=== PATIENT | female | born 1985 | race Hispanic/Latino ===

== ENCOUNTER 2019-02-20 18:02 | Emergency (ER) | payer SELFPAY ==
--- NOTE | 2019-02-20 19:18 | RAD REPORT ---
EXAM DESCRIPTION: US - Abdomen Exam Limited - 02/20/2019 7:10 pm CLINICAL HISTORY: Abdominal pain COMPARISON: No comparisons FINDINGS: Gallbladder is packed with multiple densely shadowing gallstones. No wall thickening or pe richolecystic fluid suspected. No common duct stone or biliary tree dilatation identified. IMPRESSION: Numerous gallstones back in normal sized gallbladder. No biliary tree abnormality.
[2019-02-20] MEDS ORDERED: KETOROLAC 30 MG/ML INJ ONE (19:27)
[2019-02-20] MEDS ORDERED: PROMETHAZINE 25 MG TABLET ONE (19:27)
--- NOTE | 2019-02-20 19:58 | ER ---
Nurse's Notes [facility] Name: Mary Kay Rausch Age: 34 yrs Sex: Female : 1985 Arrival Date: 02/20/2019 Time: 18:08 Bed 8 Private MD: Diagnosis: Cholelithiasis Presentation: 02/20 18:14 Presenting complaint: Patient states: n/v, epigastric pain started today 1300. Hx sv gallstones, was supposed to have sx but did not. Transition of care: patient was not received from another setting of care. Onset of symptoms was February 20, 2019. Risk Assessment: Do you want to hurt yourself or someone else? Patient reports no desire to harm self or others. Initial Sepsis Screen: Does the patient meet any 2 criteria? No. Patient's initial sepsis screen is negative. Does the patient have a suspected source of infection? No. Patient's initial sepsis screen is negative. Care prior to arrival: None. 18:14 Method Of Arrival: Ambulatory sv 18:14 Acuity: CALLI 3 sv 18:16 Note trucker hand ID #[id number]. sv Triage Assessment: 18:14 General: Appears in no apparent distress. uncomfortable, Behavior is calm, cooperative, sv appropriate for age. Pain: Complains of pain in anterior aspect of left lateral abdomen and left upper quadrant. Neuro: Level of Consciousness is awake, alert, obeys commands, Gait is steady. Respiratory: Respiratory effort is even, unlabored. GI: Reports upper abdominal pain, nausea, vomiting. Historical: - Allergies: 18:16 No Known Allergies; sv - PMHx: 18:16 Gallstones; sv - PSHx: 18:16 None; sv - Immunization history:: Adult Immunizations up to date. - Social history:: Smoking status: Patient/guardian denies using tobacco. - Ebola Screening: : No symptoms or risks identified at this time. Screenin:29 Abuse screen: Denies threats or abuse. Nutritional screening: No deficits noted. ea Tuberculosis screening: No symptoms or risk factors identified. Fall Risk None identified. Assessment: 19:27 General: Appears uncomfortable, Behavior is calm, cooperative, appropriate for age. ea Pain: Complains of pain in abdomen and left upper quadrant. Neuro: Level of Consciousness is awake, alert, obeys commands, Oriented to person, place, time, situation. Cardiovascular: Patient's skin is warm and dry. Respiratory: Airway is patent Respiratory effort is even, unlabored, Respiratory pattern is regular, symmetrical. GI: Abdomen is non-distended. Derm: Skin is pink, warm \T\ dry. Musculoskeletal: Circulation, motion, and sensation intact. 19:57 Reassessment: Patient and/or family updated on plan of care and expected duration. Pain ea level reassessed. Patient is alert, oriented x 3, equal unlabored respirations, skin warm/dry/pink. Patient states symptoms have improved. 20:10 Reassessment: Patient and/or family updated on plan of care and expected duration. Pain ea level reassessed. Patient is alert, oriented x 3, equal unlabored respirations, skin warm/dry/pink. Discharge instruction given to patient, verbalized the understanding of instruction. Pt left ED ambulatory accompanied by significant other. Pt tolerating well. Vital Signs: 18:16 BP 131 / 99; Pulse 74; Resp 16; Temp 98; Pulse Ox 99% ; Weight 52 kg; Height 5 ft. 0 sv in. (152.40 cm); 19:40 BP 118 / 76; Pulse 72; Resp 18; Pulse Ox 98% ; ea 18:16 Body Mass Index 22.39 (52.00 kg, 152.40 cm) sv ED Course: 18:08 Patient arrived in ED. am2 18:15 Triage completed. sv 18:16 Arm band placed on. sv 18:35 [facility]. snw 18:35 Bulmaro Cronin MD is Attending Physician. snw 18:49 Patient taken to ultrasound. via wheelchair. hr 18:55 Patient's name was called from ER lobby. No response. fc 19:11 Eri Palumbo, RN is Primary Nurse. ea 19:12 US Abdomen Limited In Process Unspecified. EDMS 19:29 Patient has correct armband on for positive identification. Bed in low position. Call ea light in reach. 20:17 No provider procedures requiring assistance completed. Patient did not have IV access ea during this emergency room visit. Administered Medications: 19:32 Drug: Phenergan 25 mg Route: PO; rr5 19:55 Follow up: Response: No adverse reaction ea 19:32 Drug: TORadol 30 mg Route: IM; Site: right gluteus; rr5 19:55 Follow up: Response: No adverse reaction; Pain is decreased ea Outcome: 19:58 Discharge ordered by . efrem 20:17 Discharged to home ambulatory, with significant other. ea 20:17 Condition: stable 20:17 Discharge instructions given to patient, Instructed on discharge instructions, follow up and referral plans. medication usage, Demonstrated understanding of instructions, follow-up care, medications, Prescriptions given X 2. 20:18 Patient left the ED. ea Signatures: Dispatcher [employer] EDKesha Pack, RN RN Vaishali Perez, SHEEP AND WHEAT FARMER-C SHEEP AND WHEAT FARMER-Csnw Yeny Blancas Felicia, RN RN Venita Garduno Elena RN RN Fabian Boyce RN RN rr5
--- NOTE | 2019-02-20 19:58 | EDPHYS ---
Physician Documentation [facility] Name: Mary Kay Rausch Age: 34 yrs Sex: Female : 1985 Arrival Date: 02/20/2019 Time: 18:08 Bed 8 Private MD: ED Physician Bulmaor Cronin HPI: 02/20 19:56 This 34 yrs old Female presents to ER via Ambulatory with complaints of RUQ snw pain, Nausea/Vomiting. 19:56 The patient presents with abdominal pain in the epigastric area, in the right upper snw quadrant. Onset: The symptoms/episode began/occurred suddenly. The symptoms radiate to right back. Associated signs and symptoms: Pertinent positives: nausea. The symptoms are described as intermittent, vague. Severity of pain: At its worst the pain was moderate in the emergency department the pain has improved. The patient has experienced similar episodes in the past. The patient has not recently seen a physician. known Cholelithiasis. Historical: - Allergies: 18:16 No Known Allergies; sv - PMHx: 18:16 Gallstones; sv - PSHx: 18:16 None; sv - Immunization history:: Adult Immunizations up to date. - Social history:: Smoking status: Patient/guardian denies using tobacco. - Ebola Screening: : No symptoms or risks identified at this time. ROS: 19:56 Constitutional: Negative for fever, chills, and weight loss, Eyes: Negative for injury, snw pain, redness, and discharge, ENT: Negative for injury, pain, and discharge, Neck: Negative for injury, pain, and swelling, Cardiovascular: Negative for chest pain, palpitations, and edema, Respiratory: Negative for shortness of breath, cough, wheezing, and pleuritic chest pain, Back: Negative for injury and pain, : Negative for injury, bleeding, discharge, and swelling, MS/Extremity: Negative for injury and deformity, Skin: Negative for injury, rash, and discoloration, Neuro: Negative for headache, weakness, numbness, tingling, and seizure. 19:56 Abdomen/GI: Positive for abdominal pain, nausea and vomiting. Exam: 19:55 Constitutional: This is a well developed, well nourished patient who is awake, alert, snw and in no acute distress. Head/Face: Normocephalic, atraumatic. Eyes: Pupils equal round and reactive to light, extra-ocular motions intact. Lids and lashes normal. Conjunctiva and sclera are non-icteric and not injected. Cornea within normal limits. Periorbital areas with no swelling, redness, or edema. ENT: Nares patent. No nasal discharge, no septal abnormalities noted. Tympanic membranes are normal and external auditory canals are clear. Oropharynx with no redness, swelling, or masses, exudates, or evidence of obstruction, uvula midline. Mucous membranes moist. Neck: Trachea midline, no thyromegaly or masses palpated, and no cervical lymphadenopathy. Supple, full range of motion without nuchal rigidity, or vertebral point tenderness. No Meningismus. Chest/axilla: Normal chest wall appearance and motion. Nontender with no deformity. No lesions are appreciated. Cardiovascular: Regular rate and rhythm with a normal S1 and S2. No gallops, murmurs, or rubs. Normal PMI, no JVD. No pulse deficits. Respiratory: Lungs have equal breath sounds bilaterally, clear to auscultation and percussion. No rales, rhonchi or wheezes noted. No increased work of breathing, no retractions or nasal flaring. Back: No spinal tenderness. No costovertebral tenderness. Full range of motion. Skin: Warm, dry with normal turgor. Normal color with no rashes, no lesions, and no evidence of cellulitis. MS/ Extremity: Pulses equal, no cyanosis. Neurovascular intact. Full, normal range of motion. Neuro: Awake and alert, GCS 15, oriented to person, place, time, and situation. Cranial nerves II-XII grossly intact. Motor strength 5/5 in all extremities. Sensory grossly intact. Cerebellar exam normal. Normal gait. Psych: Awake, alert, with orientation to person, place and time. Behavior, mood, and affect are within normal limits. 19:55 Abdomen/GI: Inspection: abdomen appears normal, Bowel sounds: normal, Palpation: mild abdominal tenderness, in the right upper quadrant and left upper quadrant, Indicators: Beltran's sign is negative. Vital Signs: 18:16 BP 131 / 99; Pulse 74; Resp 16; Temp 98; Pulse Ox 99% ; Weight 52 kg; Height 5 ft. 0 sv in. (152.40 cm); 19:40 BP 118 / 76; Pulse 72; Resp 18; Pulse Ox 98% ; ea 18:16 Body Mass Index 22.39 (52.00 kg, 152.40 cm) sv MDM: 19:37 Patient medically screened. snw 19:58 Data reviewed: vital signs, nurses notes. Data interpreted: Pulse oximetry: on room air snw is 98 %. Interpretation: normal. Counseling: I had a detailed discussion with the patient and/or guardian regarding: the historical points, exam findings, and any diagnostic results supporting the discharge/admit diagnosis, lab results, radiology results, the need for outpatient follow up, to return to the emergency department if symptoms worsen or persist or if there are any questions or concerns that arise at home. Special discussion: Based on the patient's Hx, exam, and Dx evaluation, there is no indication for emergent surgery or inpatient Tx. It is understood by the patient/guardian that if the Sx's persist or worsen they need to return immediately for re-evaluation. Based on the history and exam findings, there is no indication for further emergent testing or inpatient evaluation. I discussed with the patient/guardian the need to see the general surgeon for further evaluation of the symptoms. 02/20 18:36 Order name: Urine Microscopic Only; Complete Time: 20:09 snw 02/20 19:28 Order name: Urine Dipstick--Ancillary (enter results); Complete Time: 20:09 em1 02/20 18:36 Order name: US Abdomen Limited; Complete Time: 19:23 snw 02/20 19:28 Order name: Urine --Ancillary (enter results); Complete Time: 20:09 em1 02/20 18:36 Order name: Urine Test (obtain specimen); Complete Time: 19:25 snw 02/20 18:36 Order name: Urine Dipstick-Ancillary (obtain specimen); Complete Time: 19:25 snw Administered Medications: 19:32 Drug: Phenergan 25 mg Route: PO; rr5 19:55 Follow up: Response: No adverse reaction ea 19:32 Drug: TORadol 30 mg Route: IM; Site: right gluteus; rr5 19:55 Follow up: Response: No adverse reaction; Pain is decreased ea Disposition: 02/21 07:46 Co-signature as Attending Physician, Bulmaro Cronin MD. gs Disposition: 02/20/19 19:58 Discharged to Home. Impression: Cholelithiasis. - Condition is Stable. - Discharge Instructions: Fat and Cholesterol Restricted Diet, Cholelithiasis. - Prescriptions for Bentyl 20 mg Oral Tablet - take 2 tablet by ORAL route every 6 hours As needed; 40 tablet. promethazine 25 mg Oral Tablet - take 1 tablet by ORAL route every 6 hours As needed; 20 tablet. - Medication Reconciliation Form, Thank You Letter, Antibiotic Education, Prescription Opioid Use form. - Follow up: Private Physician; When: 1 - 2 days; Reason: Recheck today's complaints, Continuance of care, Re-evaluation by your physician. Follow up: Emergency Department; When: As needed; Reason: Worsening of condition. Signatures: Dispatcher [employer] Kesha Oliveira, RN RN Vaishali Perez, VISUAL ASSOCIATE-C VISUAL ASSOCIATE-Csnw Eri Palumbo RN RN ea Starr, Gregory, MD MD gs Roque, Raymond, RN RN rr5 Corrections: (The following items were deleted from the chart) 02/20 20:18 19:58 02/20/2019 19:58 Discharged to Home. Impression: Cholelithiasis. Condition is ea Stable. Forms are Medication Reconciliation Form, Thank You Letter, Antibiotic Education, Prescription Opioid Use. Follow up: Private Physician; When: 1 - 2 days; Reason: Recheck today's complaints, Continuance of care, Re-evaluation by your physician. Follow up: Emergency Department; When: As needed; Reason: Worsening of condition. snw
[2019-02-20 20:03] LABS: Urine Bacteria <20 /HPF (<20); Urine Culture Reflex Order NOT NEEDED; Urine RBC <5 /HPF (NONE SEEN)
[2019-02-20 20:04] LABS: Urine Blood TRACE (NEG); Urine Glucose NEGATIVE (NEG); Urine Protein NEGATIVE (NEG); Urine Specific Gravity 1.015 (1.005-1.030)
[2019-02-20 20:29] VITALS: TEMP 98
[2019-02-20 20:30] VITALS: BP 118/76; O2SAT 98
== END 2019-02-20 20:18 | disposition home or self-care (01) ==
LOC: ER 18:02
DX: K80.20 Calculus of gallbladder without cholecystitis without obstruction (principal)
CPT/HCPCS: 76705; 81003; 81015; 81025; 96372; 99284; Q0169

== ENCOUNTER 2019-02-23 07:12 | Emergency (ER) | payer SELFPAY ==
[2019-02-23] MEDS ORDERED: NA CHLORIDE 0.9% 1,000 ML ONE (07:22)
[2019-02-23] MEDS ORDERED: ONDANSETRON 4 MG/2 ML VIAL ONE (07:22)
[2019-02-23] MEDS ORDERED: KETOROLAC 30 MG/ML INJ ONE (07:22)
[2019-02-23 07:39] LABS: Absolute Lymphocytes (CBC) 1.9 K/uL (0.7-4.9); Basophils % 0.3 % (0-1.3); Hematocrit 43.9 % (36.0-45.0); Lymphocytes % 12.9 % (15.3-44.8); MPV 8.7 fL (7.6-11.3)
[2019-02-23 07:50] LABS: Urine Blood TRACE (NEG); Urine Glucose NEGATIVE (NEG); Urine Protein NEGATIVE (NEG)
[2019-02-23 07:58] LABS: ALT/SGPT 49 U/L (12-78); AST/SGOT 60 U/L (15-37); Albumin 4.5 g/dL (3.4-5.0); Alkaline Phosphatase 84 U/L (45-117); BUN Blood Urea Nitrogen 8 mg/dL (7-18); Bicarbonate 26 mmol/L (21-32); Bilirubin Direct 0.2 mg/dL (0-0.2); Bilirubin Total 0.4 mg/dL (0.2-1.0); Glucose Level 103 mg/dL (74-106); Potassium 3.2 mmol/L (3.5-5.1); Protein, Total 8.3 g/dL (6.4-8.2); Sodium Level 139 mmol/L (136-145)
[2019-02-23 07:59] LABS: Lipase > 30000 U/L (73-393)
--- NOTE | 2019-02-23 08:39 | ER ---
Nurse's Notes [facility] Name: Mary Kay Rausch Age: 34 yrs Sex: Female : 1985 Arrival Date: 02/23/2019 Time: 07:13 Bed 5 Private MD: Diagnosis: Acute pancreatitis;Cholelithiasis Presentation: 02/23 07:18 Presenting complaint: Patient states: abd pain, n/v since last night, was recently iw diagnosed with gallstones. Transition of care: patient was not received from another setting of care. Onset of symptoms was February 23, 2019. Risk Assessment: Do you want to hurt yourself or someone else? Patient reports no desire to harm self or others. Initial Sepsis Screen: Does the patient meet any 2 criteria? No. Patient's initial sepsis screen is negative. Does the patient have a suspected source of infection? No. Patient's initial sepsis screen is negative. Care prior to arrival: None. 07:18 Method Of Arrival: Ambulatory iw 07:18 Acuity: CALLI 3 iw DIRECTOR OF EMAIL MARKETING: 09:49 LMP N/A - Irregular menses bp Historical: - Allergies: 07:19 No Known Allergies; iw - Home Meds: 07:19 None [Active]; iw - PMHx: 07:19 GALLSTONES; iw - PSHx: 07:19 None; iw - Immunization history:: Adult Immunizations up to date. - Ebola Screening: : Patient negative for fever greater than or equal to 101.5 degrees Fahrenheit, and additional compatible Ebola Virus Disease symptoms Patient denies exposure to infectious person Patient denies travel to an Ebola-affected area in the 21 days before illness onset No symptoms or risks identified at this time. - Social history:: Smoking status: Patient/guardian denies using tobacco. Screenin:20 Abuse screen: Denies threats or abuse. Denies injuries from another. Nutritional bp screening: No deficits noted. Tuberculosis screening: No symptoms or risk factors identified. Fall Risk None identified. Assessment: 07:20 General: Appears in no apparent distress. uncomfortable, Behavior is cooperative, bp appropriate for age, anxious. Pain: Complains of pain in right upper quadrant. Neuro: No deficits noted. Cardiovascular: No deficits noted. Respiratory: No deficits noted. GI: Bowel sounds present X 4 quads. Abdomen is tender to palpation in right upper quadrant. : No signs and/or symptoms were reported regarding the genitourinary system. EENT: No deficits noted. Derm: No deficits noted. Musculoskeletal: No deficits noted. 08:04 Reassessment: U/S AT [facility]. bp 09:22 Reassessment: REPORT TO TERRIE ENAMORADO AT [facility]. TRANSPORT PENDING. bp 09:48 Reassessment: [facility] AT [facility], PT POLA. bp Vital Signs: 07:24 BP 132 / 97; Pulse 68; Resp 20; Temp 97.8; Pulse Ox 100% ; bp 08:09 BP 126 / 85; Pulse 58; Resp 16; Pulse Ox 100% ; bp 09:23 BP 122 / 76; Pulse 63; Resp 16; Temp 98; Pulse Ox 100% ; bp ED Course: 07:13 Patient arrived in ED. mr 07:13 [facility] Diamond [facility]C [facility]. kb 07:14 Fernando Selby MD is Attending Physician. kb 07:15 Cody Ramirez, FEI is Primary Nurse. bp 07:19 Triage completed. iw 07:19 Arm band placed on. iw 07:20 Patient has correct armband on for positive identification. Placed in gown. Bed in low bp position. Call light in reach. Side rails up X2. Adult w/ patient. 07:34 Initial lab(s) drawn, by me, sent to lab. Missed attempt(s): 22 gauge in right kj1 antecubital area. 07:40 Inserted saline lock: 22 gauge in right forearm, using aseptic technique. bp 08:16 US Abdomen Limited In Process Unspecified. EDMS 08:18 Ultrasound completed. Patient tolerated well. Notified BUNDLE TIER/BRANDAN wei. sg3 08:24 initiated a transfer with Cleopatra from the [facility] transfer [place]. eb 08:[address] Spencer the hospitalist sales correspondent for [facility] with Gita MARIO for patient transfer consultation. 08:50 administrative approval given by Cleopatra Purvis/ patient has been accepted to [facility] 2161 bed 1/ Dr. Spencer has accepted the patient in transfer/ report to be called to [phone]. 09:49 No provider procedures requiring assistance completed. Patient transferred, IV remains bp in place. Administered Medications: 07:40 Drug: NS 0.9% 1000 ml Route: IV; Rate: 1000 ml; Site: right forearm; bp 09:00 Follow up: IV Status: Completed infusion; IV Intake: 1000ml bp 07:40 Drug: Zofran 4 mg Route: IVP; Site: right forearm; bp 09:23 Follow up: Response: Nausea is decreased bp 07:40 Drug: TORadol - Ketorolac 15 mg Route: IVP; Site: right forearm; bp 09:23 Follow up: Response: Pain is decreased bp 09:24 Drug: NS 0.9% with KCl 40 mEq/L 1000 ml Route: IV; Rate: 125 ml/hr; Site: right forearm;bp 09:50 Follow up: IV Status: Infusion continued upon transfer bp Intake: 09:00 IV: 1000ml; Total: 1000ml. bp Outcome: 08:39 ER care complete, transfer ordered by . kb 09:48 Transferred by ground EMS to [facility], Transfer form completed. bp 09:48 Condition: stable 09:48 Instructed on the need for transfer. 09:50 Patient left the ED. bp Signatures: Dispatcher [employer] EDMS Gita Diamond, DENISE TOSCANOP-Tracie Cooper Irene, RN Cody Dash RN RN bp Godinez, Sarah sg3 Christi Montoya Kandis kj1 Corrections: (The following items were deleted from the chart) 07:42 07:24 Temp 97.8F; bp bp
--- NOTE | 2019-02-23 08:40 | EDPHYS ---
Physician Documentation [facility] Name: Mary Kay Rausch Age: 34 yrs Sex: Female : 1985 Arrival Date: 02/23/2019 Time: 07:13 Bed 5 Private MD: ED Physician Fernando Selby HPI: 02/23 07:24 This 34 yrs old Female presents to ER via Ambulatory with complaints of kb Abdominal Pain. 07:24 The patient presents with abdominal pain in the right upper quadrant. Onset: The kb symptoms/episode began/occurred this morning, at 03:00. The symptoms do not radiate. Associated signs and symptoms: Pertinent positives: nausea and vomiting. The symptoms are described as constant. Modifying factors: The symptoms are alleviated by nothing, the symptoms are aggravated by nothing. Severity of pain: At its worst the pain was moderate in the emergency department the pain is unchanged. The patient has experienced a previous episode. The patient has been recently seen at the [facility] Emergency Department, last week, for similar complaints an ultrasound was performed. 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 - Ebola Screening: : Patient negative for fever greater than or equal to 101.5 degrees Fahrenheit, and additional compatible Ebola Virus Disease symptoms Patient denies exposure to infectious person Patient denies travel to an Ebola-affected area in the 21 days before illness onset No symptoms or risks identified at this time. - Social history:: Smoking status: Patient/guardian denies using tobacco. ROS: 07:24 Constitutional: Negative for fever, chills, and weight loss, Neck: Negative for injury, kb pain, and swelling, Cardiovascular: Negative for chest pain, palpitations, and edema, Respiratory: Negative for shortness of breath, cough, wheezing, and pleuritic chest pain, Back: Negative for injury and pain, : Negative for injury, bleeding, discharge, and swelling, MS/Extremity: Negative for injury and deformity, Skin: Negative for injury, rash, and discoloration, Neuro: Negative for headache, weakness, numbness, tingling, and seizure. 07:24 Abdomen/GI: Positive for abdominal pain, nausea and vomiting, Negative for diarrhea, constipation, abdominal cramps, abdominal distension, anorexia. Exam: 07:24 Constitutional: This is a well developed, well nourished patient who is awake, alert, kb and in no acute distress. Head/Face: Normocephalic, atraumatic. ENT: Nares patent. No nasal discharge, no septal abnormalities noted. Tympanic membranes are normal and external auditory canals are clear. Oropharynx with no redness, swelling, or masses, exudates, or evidence of obstruction, uvula midline. Mucous membranes moist. Neck: Trachea midline, no thyromegaly or masses palpated, and no cervical lymphadenopathy. Supple, full range of motion without nuchal rigidity, or vertebral point tenderness. No Meningismus. Chest/axilla: Normal chest wall appearance and motion. Nontender with no deformity. No lesions are appreciated. Cardiovascular: Regular rate and rhythm with a normal S1 and S2. No gallops, murmurs, or rubs. Normal PMI, no JVD. No pulse deficits. Respiratory: Lungs have equal breath sounds bilaterally, clear to auscultation and percussion. No rales, rhonchi or wheezes noted. No increased work of breathing, no retractions or nasal flaring. Skin: Warm, dry with normal turgor. Normal color with no rashes, no lesions, and no evidence of cellulitis. MS/ Extremity: Pulses equal, no cyanosis. Neurovascular intact. Full, normal range of motion. Neuro: Awake and alert, GCS 15, oriented to person, place, time, and situation. Cranial nerves II-XII grossly intact. Motor strength 5/5 in all extremities. Sensory grossly intact. Cerebellar exam normal. Normal gait. 07:24 Abdomen/GI: Inspection: abdomen appears normal, Bowel sounds: normal, in all quadrants, Palpation: soft, in all quadrants, mild abdominal tenderness, in all quadrants. Vital Signs: 07:24 BP 132 / 97; Pulse 68; Resp 20; Temp 97.8; Pulse Ox 100% ; bp 08:09 BP 126 / 85; Pulse 58; Resp 16; Pulse Ox 100% ; bp 09:23 BP 122 / 76; Pulse 63; Resp 16; Temp 98; Pulse Ox 100% ; bp MDM: 07:14 Patient medically screened. kb 07:23 Data reviewed: vital signs, nurses notes. Data interpreted: Pulse oximetry: on room air kb is 100 %. Interpretation: normal. 08:25 Counseling: I had a detailed discussion with the patient and/or guardian regarding: the kb historical points, exam findings, and any diagnostic results supporting the discharge/admit diagnosis, lab results, radiology results, the need to transfer to another facility, [facility] does not immediately have the required specialist. Physician consultation: Iker Ramírez MD was contacted at 08:20, regarding patient's condition, after a discussion of the case, a recommendation for transfer for higher level of care is made. 08:38 ED course: Dr Spencer accepts pt for transfer to [facility]. kb 02/23 07:18 Order name: Basic Metabolic Panel kb 02/23 07:18 Order name: CBC with Diff; Complete Time: 07:41 kb 02/23 07:18 Order name: Hepatic Function kb 02/23 07:18 Order name: Lipase; Complete Time: 08:02 kb 02/23 07:18 Order name: Basic Metabolic Panel; Complete Time: 08:02 EDMS 02/23 07:18 Order name: Liver (Hepatic) Function; Complete Time: 08:02 EDMS 02/23 07:18 Order name: IV Saline Lock; Complete Time: 07:42 kb 02/23 07:18 Order name: US Abdomen Limited; Complete Time: 08:44 kb 02/23 07:42 Order name: Urine Dipstick--Ancillary (enter results); Complete Time: 07:53 eb 02/23 07:42 Order name: Urine --Ancillary (enter results); Complete Time: 07:53 eb 02/23 07:18 Order name: Labs collected and sent; Complete Time: 07:41 kb Administered Medications: 07:40 Drug: NS 0.9% 1000 ml Route: IV; Rate: 1000 ml; Site: right forearm; bp 09:00 Follow up: IV Status: Completed infusion; IV Intake: 1000ml bp 07:40 Drug: Zofran 4 mg Route: IVP; Site: right forearm; bp 09:23 Follow up: Response: Nausea is decreased bp 07:40 Drug: TORadol - Ketorolac 15 mg Route: IVP; Site: right forearm; bp 09:23 Follow up: Response: Pain is decreased bp 09:24 Drug: NS 0.9% with KCl 40 mEq/L 1000 ml Route: IV; Rate: 125 ml/hr; Site: right forearm;bp 09:50 Follow up: IV Status: Infusion continued upon transfer bp Disposition: 15:35 Co-signature as Attending Physician, Fernando Selby MD I agree with the assessment and kdr plan of care. Disposition: 02/23/19 08:39 Transfer ordered to [facility]. Diagnosis are Acute pancreatitis, Cholelithiasis. - Reason for transfer: Higher level of care. - Accepting physician is Dr Spencer. - Condition is Stable. - Problem is new. - Symptoms are unchanged. Signatures: Dispatcher [employer] EDMS Gita Diamond, HOTEL SECURITY OFFICER-C HOTEL SECURITY OFFICER-Ckb Fernando Selby MD MD kdr Beata Waggoner, FEI RN iw Cody Ramirez RN RN bp Corrections: (The following items were deleted from the chart) 09:50 08:39 02/23/2019 08:39 Transfer ordered to [facility]. Diagnosis is bp Acute pancreatitis; Cholelithiasis. Reason for transfer: Higher level of care. Accepting physician is Dr Spencer. Condition is Stable. Problem is new. Symptoms are unchanged. kb
--- NOTE | 2019-02-23 08:41 | RAD REPORT ---
EXAM DESCRIPTION: US - Abdomen Exam Limited - 02/23/2019 8:16 am CLINICAL HISTORY: +gallstones, r/o cholecystitis;Abd pain COMPARISON: Abdomen Exam Limited dated 02/20/2019 FINDINGS: Numerous small mobile gallstones are again identified in a normal size gallbladder. There is no wall thickening or pericholecystic fluid. No common duct stone or biliary tree dilatation identified. IMPRESSION: Multi stone cholelithiasis similar to prior imaging. No wall thickening or pericholecystic fluid. No biliary tree abnormality seen.
[2019-02-23] MEDS ORDERED: NA CHLORIDE 0.9% 1,000 ML with POTASSIUM CL 40 MEQ IV SCH ×2 (09:00)
[2019-02-23 10:05] VITALS: O2SAT 100
[2019-02-23 10:07] VITALS: BP 122/76; TEMP 98
== END 2019-02-23 09:50 | disposition short-term general hospital (02) ==
LOC: ER 07:12
DX: K85.90 Acute pancreatitis without necrosis or infection, unspecified (principal); K80.20 Calculus of gallbladder without cholecystitis without obstruction
CPT/HCPCS: 36415; 76705; 80048; 80076; 81003; 81025; 83690; 85025; 96361; 96374; 96375; 99285; J2405; J7030

== ENCOUNTER 2019-06-28 11:19 | Inpatient (IN) | payer SELFPAY ==
--- OUTSIDE RECORDS SUMMARY | 2019-06-28 11:21 | XMS REPORT ---
:1985 [facility] Address [address] [place] [address] Dr. Ramos [address] [place] [id number] Care Team Providers Name Role Phone MEGANOFELIA Soto Richie Unavailable Unavailable Problems This patient has no known problems. Allergies, Adverse Reactions, Alerts This patient has no known allergies or adverse reactions. Medications This patient has no known medications. Results Test Description Test Time Test Comments Text Results Atomic Results Result Comments TISSUE EXAM 2019-03-04 09:49:00 Surgical Pathology Report Case: [id number] Authorizing Provider: Minor Chiu MD Collected: 02/24/2019 1518 Ordering Location: [facility] Received: 02/24/2019 1608 SERVICES Pathologist: Jovany Desouza MD Specimen: Gallbladder PART A GALLBLADDER, CHOLECYSTITIS:CHRONIC CHOLECYSTITISCHOLELITHIASISCYSTIC DUCT MARGIN NEGATIVE FOR MALIGNANCY Signing Pathologist Direct Phone Line: [phone] signed by Jovany Desouza MD on 03/04/2019 at 9:49 [id number].Gallstone, pancreatitis Gallbladder.The specimen is received fresh in a container labeled with the patient's demographic information and surgical accession number and is an intact gallbladder 9 x 3 x 2 cm. The serosa is smooth. The attachment to the liver is unremarkable. The cholecystic duct is 0.5 cm in diameter. On cut sections, the lumen contains several mL of bile fluid and multiple yellow multifaceted calculi up to 0.8 cm. Some of them are fragmented. The mucosa has fine granularity, and the wall is up to 0.1 cm. No gross lesions are present. Cutter Grinder sections of the cholecystic duct is and portions of gallbladder are submitted in one block, A1. HL/ew Performed.[facility], Department of Pathology, [address] [place] [address], [place] [address], [facility], [address] [place] [address], [facility], [facility] of [facility], [address] [place] [address], HEPATIC FUNCTION PANEL 2019-02-25 13:27:00 Test Item Value Reference Range Comments TOTAL PROTEIN (BEAKER) (test ginx=833) 6.2 gm/dL 6.0-8.3 ALBUMIN (BEAKER) (test uujy=4978) 3.7 g/dL 3.5-5.0 BILIRUBIN TOTAL (BEAKER) (test xaii=461) 0.2 mg/dL 0.2-1.2 BILIRUBIN DIRECT (BEAKER) (test pvnv=723) 0.1 mg/dL 0.1-0.5 ALKALINE PHOSPHATASE (BEAKER) (test dfmf=922) 61 U/L 40-150 AST (SGOT) (BEAKER) (test wiuj=857) 39 U/L 5-34 ALT (SGPT) (BEAKER) (test ufea=489) 45 U/L 6-55 COMPREHENSIVE METABOLIC [id number] 13:27:00 Test Item Value Reference Range Comments TOTAL PROTEIN (BEAKER) 6.2 gm/dL 6.0-8.3 (test zxyf=994) ALBUMIN (BEAKER) (test 3.7 g/dL 3.5-5.0 ydty=5190) ALKALINE PHOSPHATASE 61 U/L 40-150 (BEAKER) (test gxmw=155) BILIRUBIN TOTAL (BEAKER) 0.2 mg/dL 0.2-1.2 (test yntv=010) SODIUM (BEAKER) (test 136 meq/L 136-145 mvem=541) POTASSIUM (BEAKER) (test 3.6 meq/L 3.5-5.1 jvgh=761) CHLORIDE (BEAKER) (test 105 meq/L 98-107 kxag=748) CO2 (BEAKER) (test 27 meq/L 22-29 tuib=432) BLOOD UREA NITROGEN 6 mg/dL 7-21 (BEAKER) (test zpje=838) CREATININE (BEAKER) (test 0.68 mg/dL 0.57-1.25 sykt=848) GLUCOSE RANDOM (BEAKER) 130 mg/dL 70-105 (test onjp=172) CALCIUM (BEAKER) (test 8.7 mg/dL 8.4-10.2 mlbw=338) AST (SGOT) (BEAKER) (test 39 U/L 5-34 wepz=297) ALT (SGPT) (BEAKER) (test 45 U/L 6-55 wxuw=319) EGFR (BEAKER) (test 100 mL/min/1.73 sq ESTIMATED GFR IS NOT smsc=8104) m ACCURATE CREATININE CLEARANCE IN PREDICTING GLOMERULAR FILTRATION RATE. ESTIMATED GFR IS NOT APPLICABLE FOR DIALYSIS PATIENTS. CBC W/PLT COUNT & AUTO [id number] 10:27:00 Test Item Value Reference Range Comments WHITE BLOOD CELL COUNT (BEAKER) (test fitx=401) 13.1 K/ L 3.5-10.5 RED BLOOD CELL COUNT (BEAKER) (test smxt=665) 3.54 M/ L 3.93-5.22 HEMOGLOBIN (BEAKER) (test pmul=926) 11.5 GM/DL 11.2-15.7 HEMATOCRIT (BEAKER) (test poij=106) 33.1 % 34.1-44.9 MEAN CORPUSCULAR VOLUME (BEAKER) (test jjvu=485) 93.5 fL 79.4-94.8 MEAN CORPUSCULAR HEMOGLOBIN (BEAKER) (test 32.5 pg 25.6-32.2 xwcu=518) MEAN CORPUSCULAR HEMOGLOBIN CONC (BEAKER) (test 34.7 GM/DL 32.2-35.5 gphq=654) RED CELL DISTRIBUTION WIDTH (BEAKER) (test 12.0 % 11.7-14.4 aril=440) PLATELET COUNT (BEAKER) (test znnb=350) 252 K/CU MM 150-450 MEAN PLATELET VOLUME (BEAKER) (test wkss=463) 10.7 fL 9.4-12.3 NUCLEATED RED BLOOD CELLS (BEAKER) (test 0 /100 WBC 0-0 ywor=445) NEUTROPHILS RELATIVE PERCENT (BEAKER) (test 79 % siiq=169) LYMPHOCYTES RELATIVE PERCENT (BEAKER) (test 14 % dhgs=571) MONOCYTES RELATIVE PERCENT (BEAKER) (test 6 % hxba=954) EOSINOPHILS RELATIVE PERCENT (BEAKER) (test 0 % kwpz=738) BASOPHILS RELATIVE PERCENT (BEAKER) (test 0 % bjhd=700) NEUTROPHILS ABSOLUTE COUNT (BEAKER) (test 10.40 K/ L 1.56-6.13 wgoj=109) LYMPHOCYTES ABSOLUTE COUNT (BEAKER) (test 1.79 K/ L 1.18-3.74 wnle=741) MONOCYTES ABSOLUTE COUNT (BEAKER) (test 0.81 K/ L 0.24-0.36 zrhs=913) EOSINOPHILS ABSOLUTE COUNT (BEAKER) (test 0.02 K/ L 0.04-0.36 zjyu=395) BASOPHILS ABSOLUTE COUNT (BEAKER) (test 0.02 K/ L 0.01-0.08 vnyd=246) IMMATURE GRANULOCYTES-RELATIVE PERCENT (BEAKER) 1 % 0-1 (test kltz=2514) [id number] 07:21:00 Test Item Value Reference Range Comments LIPASE (BEAKER) (test miyn=499) 274 U/L 8-78 COMPREHENSIVE METABOLIC [id number] 07:21:00 Test Item Value Reference Range Comments TOTAL PROTEIN (BEAKER) 5.5 gm/dL 6.0-8.3 (test czsr=009) ALBUMIN (BEAKER) (test 3.4 g/dL 3.5-5.0 wrmn=6329) ALKALINE PHOSPHATASE 55 U/L 40-150 (BEAKER) (test fppa=933) BILIRUBIN TOTAL (BEAKER) 0.3 mg/dL 0.2-1.2 (test vnsh=758) SODIUM (BEAKER) (test 137 meq/L 136-145 ghap=205) POTASSIUM (BEAKER) (test 3.7 meq/L 3.5-5.1 rqid=301) CHLORIDE (BEAKER) (test 110 meq/L 98-107 izqa=242) CO2 (BEAKER) (test 23 meq/L 22-29 lcwd=448) BLOOD UREA NITROGEN 5 mg/dL 7-21 (BEAKER) (test ojae=261) CREATININE (BEAKER) (test 0.65 mg/dL 0.57-1.25 qoea=211) GLUCOSE RANDOM (BEAKER) 87 mg/dL 70-105 (test umnv=628) CALCIUM (BEAKER) (test 8.1 mg/dL 8.4-10.2 zydt=991) AST (SGOT) (BEAKER) (test 20 U/L 5-34 xgka=933) ALT (SGPT) (BEAKER) (test 29 U/L 6-55 zppz=259) EGFR (BEAKER) (test 106 mL/min/1.73 sq ESTIMATED GFR IS NOT mssh=1639) m ACCURATE CREATININE CLEARANCE IN PREDICTING GLOMERULAR FILTRATION RATE. ESTIMATED GFR IS NOT APPLICABLE FOR DIALYSIS PATIENTS. POCT-GLUCOSE [id number] 06:35:00 Test Item Value Reference Range Comments POC-GLUCOSE METER (BEAKER) 73 mg/dL 70-110 TESTED AT [facility] [address] [facility] (test eweb=8668) [facility] [address] CBC W/PLT COUNT & AUTO [id number] 05:06:00 Test Item Value Reference Range Comments WHITE BLOOD CELL COUNT (BEAKER) (test uuxl=289) 7.2 K/ L 3.5-10.5 RED BLOOD CELL COUNT (BEAKER) (test iycw=505) 3.36 M/ L 3.93-5.22 HEMOGLOBIN (BEAKER) (test kzpw=409) 10.6 GM/DL 11.2-15.7 HEMATOCRIT (BEAKER) (test rtpu=574) 32.7 % 34.1-44.9 MEAN CORPUSCULAR VOLUME (BEAKER) (test akoa=863) 97.3 fL 79.4-94.8 MEAN CORPUSCULAR HEMOGLOBIN (BEAKER) (test 31.5 pg 25.6-32.2 jayj=906) MEAN CORPUSCULAR HEMOGLOBIN CONC (BEAKER) (test 32.4 GM/DL 32.2-35.5 rafo=852) RED CELL DISTRIBUTION WIDTH (BEAKER) (test 12.3 % 11.7-14.4 qzxj=606) PLATELET COUNT (BEAKER) (test bxro=530) 203 K/CU MM 150-450 MEAN PLATELET VOLUME (BEAKER) (test zfjp=871) 10.6 fL 9.4-12.3 NUCLEATED RED BLOOD CELLS (BEAKER) (test 0 /100 WBC 0-0 ezpb=518) NEUTROPHILS RELATIVE PERCENT (BEAKER) (test 65 % qmbc=923) LYMPHOCYTES RELATIVE PERCENT (BEAKER) (test 24 % gjjx=704) MONOCYTES RELATIVE PERCENT (BEAKER) (test 9 % wgvv=504) EOSINOPHILS RELATIVE PERCENT (BEAKER) (test 1 % fjkq=281) BASOPHILS RELATIVE PERCENT (BEAKER) (test 0 % fioz=255) NEUTROPHILS ABSOLUTE COUNT (BEAKER) (test 4.64 K/ L 1.56-6.13 qjvw=149) LYMPHOCYTES ABSOLUTE COUNT (BEAKER) (test 1.74 K/ L 1.18-3.74 iqyf=192) MONOCYTES ABSOLUTE COUNT (BEAKER) (test 0.62 K/ L 0.24-0.36 trkk=944) EOSINOPHILS ABSOLUTE COUNT (BEAKER) (test 0.10 K/ L 0.04-0.36 yjdn=219) BASOPHILS ABSOLUTE COUNT (BEAKER) (test 0.03 K/ L 0.01-0.08 ltho=021) IMMATURE GRANULOCYTES-RELATIVE PERCENT (BEAKER) 0 % 0-1 (test bxvp=7608) POCT-GLUCOSE [id number] 00:25:00 Test Item Value Reference Range Comments POC-GLUCOSE METER (BEAKER) 77 mg/dL 70-110 TESTED AT [facility] [address] [facility] (test tzgc=7631) [facility] [address] U/S, ABDOMINAL, [id number] 17:05:00Abdomen limited area? Add comment if clarification is needed.->Right upper quadrantReason for exam:-> choledocholothiasisFINAL REPORT Limited Abdominal ultrasound. Clinical history: choledocholothiasis Comparison study: MRCP from the same day Findings: The liver is normal in appearance with a normal echotexture. It measures 12.0 cm in span. There is no evidence of intra or extrahepatic biliary dilatation with the common bile duct measuring three mm in size. The main portal vein diameter is 0.8 cm. Extensive cholelithiasis is seen. No sonographic Beltran sign is identified. The gallbladder is elongated but nondistended. The pancreas is normal in appearance. The right kidney measures 10.3 x 3.5 x 4.6 cm. No ascites is present. The proximal aorta is unremarkable. The remainder of the abdomen was not assessed. Impression:1. Elongated gallbladder containing multiple gallstones. No biliary dilatation seen. No definite signs of acute cholecystitis. Signed: Chris Verde MDReport Verified Date/Time: 02/23/2019 17:05:40 Reading Location: [address] Consult Reading Room Electronicallysigned by: CHRIS VERDE M.D. on 02/23/2019 05:05 PMMR, ABDOMEN, [id number] 17:00:00Reason for exam:- >possible common bile duct stoneFINAL REPORT MRI of the abdomen, MRCP. CLINICAL HISTORY: Biliary obstructions, possible CBD stone. COMPARISON STUDY: Ultrasound from the same day. TECHNIQUE: Multiplanar, multisequence images of the abdomen were acquired without the administration of intravenous gadolinium as per the MRCP protocol. Three-dimensional reconstructions were acquired and utilized by the dictating radiologist at the time of interpretation. FINDINGS: No pleural effusion is seen. Some increased T2 -weighted lesions are seen in the right breast measuring up to 5 mm, possibly small cysts. The abdomen islimited by lack of contrast. The liver demonstrates a noncirrhotic morphology. No focal masses are seen on this noncontrast study. The spleen, pancreas, adrenal glands and kidneys are unremarkable. There are no dilated loops of bowel seen to suggest obstruction. No ascites is seen. The aorta is normalin caliber. MRCP demonstrates extensive cholelithiasis. No evidence of biliary dilatation is seen with the CBD measuring 4 mm. There is no choledocholithiasis identified. No pancreatic ductal dilatation is noted. The visualized osseous structures are unremarkable. IMPRESSION:1. Extensive cholelithiasis.2. No evidence of choledocholithiasis.3. Possible small cysts in the right breast. This could be caused with breast ultrasound.4. No other significant abnormality seen. Signed: Chris Verde MDReport Verified Date/ Time: 02/23/2019 17:00:36 Reading Location: [facility] C013X [facility] Consult Reading Room PREGNANCY SCREEN, [id number] 12:39:00 Test Item Value Reference Range Comments TEST URINE (BEAKER) (test jznx=394) Negative
[2019-06-28] MEDS ORDERED: FAMOTIDINE 20 MG/2 ML VIAL IV ONE (11:56)
[2019-06-28] MEDS ORDERED: ONDANSETRON 4 MG/2 ML VIAL ONE (11:56)
[2019-06-28] MEDS ORDERED: MORPHINE 4 MG/ML SYR ONE (11:56)
[2019-06-28 12:14] LABS: Absolute Lymphocytes (CBC) 1.4 K/uL (0.7-4.9); Basophils % 0.3 % (0-1.3); Lymphocytes % 9.6 % (15.3-44.8); RBC Red Blood Cell Count 4.53 M/uL (3.86-4.86)
[2019-06-28 12:26] LABS: ALT/SGPT 58 U/L (12-78); AST/SGOT 86 U/L (15-37); Albumin 3.7 g/dL (3.4-5.0); Alkaline Phosphatase 86 U/L (45-117); BUN Blood Urea Nitrogen 7 mg/dL (7-18); Bicarbonate 26 mmol/L (21-32); Bilirubin Direct 0.5 mg/dL (0-0.2); Bilirubin Total 0.9 mg/dL (0.2-1.0); Glucose Level 92 mg/dL (74-106); Lipase 27520 U/L (73-393); Potassium 3.6 mmol/L (3.5-5.1); Protein, Total 7.2 g/dL (6.4-8.2); Sodium Level 139 mmol/L (136-145)
[2019-06-28 12:45] LABS: Urine Blood 2+ (NEG); Urine Glucose NEGATIVE (NEG); Urine Protein NEGATIVE (NEG); Urine Specific Gravity 1.015 (1.005-1.030)
--- NOTE | 2019-06-28 13:28 | RAD REPORT ---
EXAM DESCRIPTION: CT - Abdomen Pelvis W Contrast - 06/28/2019 1:04 pm CLINICAL HISTORY: ABD PAIN COMPARISON: <Comparisons> TECHNIQUE: Biphasic, helical CT imaging of the abdomen and pelvis was performed following 100 ml non -ionic IV contrast. No oral contrast given. All CT scans are performed using dose optimization technique as appropriate and may include automated exposure control or mA/KV adjustment according to patient size. FINDINGS: No suspicious findings in the lung bases. Liver and spleen show no suspicious findings. Cholecystectomy clips are present. No biliary tree dila tation. No mass within the pancreatic parenchyma. The pancreatic tail does appear thickened or edematous. The re is a small amount of fluid around the tail of the pancreas. Stomach and adjacent bowel loops are u nremarkable. Symmetric renal function is seen with no hydronephrosis or suspicious renal mass. No pyelonephritis o r acute parenchymal process. No bladder abnormalities. No adrenal abnormalities. Uterus and right ovary show no significant findings. Left ovary contains a 4.6 centimeter homogeneous fluid attenuation cyst. No suspicious characteristics. No cyst rupture or hemorrhage findings. There is a trace amount of free fluid in the cul de sac well within physiologic limits. No dilated bowel loops or bowel wall thickening. Appendix is normal. No free air or pneumatosis. No mass or bulky lymphadenopathy. A very small periumbilical fat only hernia present. No suspicious bony findings. IMPRESSION: Mild pancreatitis changes are present involving the tail of the pancreas. Correlation is needed with corresponding clinical and laboratory abnormalities. No appendicitis or acute GI process identifiable. A 4.6 centimeter left ovarian cyst is present without rupture or hemorrhage findings. Status post cholecystectomy. Biliary tree is prominent but not outside of normal range for post jude cystectomy status.
--- NOTE | 2019-06-28 13:51 | RAD REPORT ---
EXAM DESCRIPTION: US - Abdomen Exam Limited - 06/28/2019 1:35 pm CLINICAL HISTORY: elevated Bili and Lipase. No GB. Look at CBD;Abd pain COMPARISON: Abdomen Pelvis W Contrast dated 06/28/2019 FINDINGS: Gallbladder is absent. Common bile duct is 7 mm which is normal range for a post cholecyst ectomy patient. No intrahepatic biliary tree dilatation. No stone, stricture or mass identifiable in the biliary tree. IMPRESSION: Negative post cholecystectomy right upper quadrant ultrasound.
--- NOTE | 2019-06-28 14:08 | EDPHYS ---
Physician Documentation [facility] Name: aMry Kay Rausch Age: 34 yrs Sex: Female : 1985 Arrival Date: 06/28/2019 Time: 11:22 Bed 14 Private MD: LAKEISHA Physician Matti Combs HPI: 06/28 11:45 This 34 yrs old Female presents to ER via Ambulatory with complaints of jr8 Abdominal Pain, Vomiting. 11:45 The patient presents with abdominal pain in the epigastric area. Onset: The jr8 symptoms/episode began/occurred acutely, today. The symptoms radiate to back. Associated signs and symptoms: Pertinent positives: nausea and vomiting. The symptoms are described as stabbing. Modifying factors: The symptoms are alleviated by nothing, the symptoms are aggravated by nothing. Severity of pain: At its worst the pain was moderate in the emergency department the pain is unchanged. The patient has experienced a previous episode. The patient has not recently seen a physician. 11:45 stated that last time she had this pain was from her gallbladder but that that was jr8 taken out . 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 - Coronavirus screen:: The patient has NOT traveled to [place] in the past 14 days. Proceed with normal triage process as indicated. - Social history:: Smoking status: Patient denies any tobacco usage or history of. - Ebola Screening: : Patient denies exposure to infectious person Patient denies travel to an Ebola-affected area in the 21 days before illness onset. ROS: 11:45 Eyes: Negative for injury, pain, redness, and discharge, ENT: Negative for injury, jr8 pain, and discharge, Neck: Negative for injury, pain, and swelling, Cardiovascular: Negative for chest pain, palpitations, and edema, Respiratory: Negative for shortness of breath, cough, wheezing, and pleuritic chest pain, Back: Negative for injury and pain, MS/Extremity: Negative for injury and deformity, Skin: Negative for injury, rash, and discoloration, Neuro: Negative for headache, weakness, numbness, tingling, and seizure. 11:45 Abdomen/GI: Positive for abdominal pain, nausea and vomiting, Negative for diarrhea, constipation, abdominal cramps, abdominal distension. Exam: 11:45 Eyes: Pupils equal round and reactive to light, extra-ocular motions intact. Lids and jr8 lashes normal. Conjunctiva and sclera are non-icteric and not injected. Cornea within normal limits. Periorbital areas with no swelling, redness, or edema. ENT: Nares patent. No nasal discharge, no septal abnormalities noted. Tympanic membranes are normal and external auditory canals are clear. Oropharynx with no redness, swelling, or masses, exudates, or evidence of obstruction, uvula midline. Mucous membranes moist. Neck: Trachea midline, no thyromegaly or masses palpated, and no cervical lymphadenopathy. Supple, full range of motion without nuchal rigidity, or vertebral point tenderness. No Meningismus. Cardiovascular: Regular rate and rhythm with a normal S1 and S2. No gallops, murmurs, or rubs. Normal PMI, no JVD. No pulse deficits. Respiratory: Lungs have equal breath sounds bilaterally, clear to auscultation and percussion. No rales, rhonchi or wheezes noted. No increased work of breathing, no retractions or nasal flaring. Back: No spinal tenderness. No costovertebral tenderness. Full range of motion. Skin: Warm, dry with normal turgor. Normal color with no rashes, no lesions, and no evidence of cellulitis. MS/ Extremity: Pulses equal, no cyanosis. Neurovascular intact. Full, normal range of motion. Neuro: Awake and alert, GCS 15, oriented to person, place, time, and situation. Cranial nerves II-XII grossly intact. Motor strength 5/5 in all extremities. Sensory grossly intact. Cerebellar exam normal. Normal gait. 11:45 Abdomen/GI: Inspection: abdomen appears normal, Bowel sounds: active, all quadrants, Palpation: soft, in all quadrants, mild abdominal tenderness, in the epigastric area, mass, is not appreciated, rebound tenderness, is not appreciated, voluntary guarding, is not appreciated, involuntary guarding, is not appreciated, no appreciated organomegaly, Indicators: McBurney's point is not tender, Beltran's sign is negative, Rovsing's sign is negative, Liver: tenderness, is not appreciated. Vital Signs: 11:30 BP 126 / 79; Pulse 70; Resp 16; Temp 98.2(O); Pulse Ox 99% on R/A; Weight 52 kg; Height ss 5 ft. 0 in. (152.40 cm); Pain 7/10; 13:30 BP 110 / 65; Pulse 70; Resp 18; Pulse Ox 100% ; mg2 14:30 BP 105 / 72; Pulse 75; Resp 18; Pulse Ox 100% on R/A; mg2 15:17 BP 104 / 78; Pulse 64; Resp 18; Temp 98; Pulse Ox 99% on R/A; mg2 11:30 Body Mass Index 22.39 (52.00 kg, 152.40 cm) ss MDM: 11:30 Patient medically screened. [facility] 14:06 Data reviewed: vital signs, nurses notes, lab test result(s), radiologic studies, [facility] scan, ultrasound. Data interpreted: Pulse oximetry: on room air is 99 %. Interpretation: normal. Counseling: I had a detailed discussion with the patient and/or guardian regarding: the historical points, exam findings, and any diagnostic results supporting the discharge/admit diagnosis, lab results, radiology results, the need for further work-up and treatment in the hospital. 06/28 11:33 Order name: Basic Metabolic Panel [facility] 06/28 11:33 Order name: CBC with Diff [facility] 06/28 11:33 Order name: Creatinine for Radiology [facility] 06/28 11:33 Order name: Hepatic Function [facility] 06/28 11:33 Order name: Lipase [facility] 06/28 12:17 Order name: CBC with Automated Diff; Complete Time: 12:18 EDMS 06/28 12:22 Order name: Creatinine (Radiology Only); Complete Time: 12:26 EDMS 06/28 12:27 Order name: CT Abd/Pelvis - IV Contrast Only [facility] 06/28 12:28 Order name: Basic Metabolic Panel; Complete Time: 12:44 EDMS 06/28 12:28 Order name: Liver (Hepatic) Function; Complete Time: 12:44 EDMS 06/28 12:28 Order name: Lipase; Complete Time: 12:44 EDMS 06/28 12:44 Order name: Urine Dipstick--Ancillary (enter results) 06/28 12:45 Order name: US Abdomen Limited [facility] 06/28 12:48 Order name: Urine Dipstick-Ancillary; Complete Time: 13:07 EDMS 06/28 11:33 Order name: IV Saline Lock; Complete Time: 11:54 8 06/28 11:33 Order name: Labs collected and sent; Complete Time: 11:54 8 06/28 12:26 Order name: Urine Test (obtain specimen); Complete Time: 12:41 [facility] 06/28 12:26 Order name: Urine Dipstick-Ancillary (obtain specimen); Complete Time: 12:41 8 06/28 14:24 Order name: CT; Complete Time: 14:43 EDMS 06/28 15:43 Order name: US; Complete Time: 15:48 EDMS Administered Medications: 12:01 Drug: Pepcid 20 mg Route: IVP; Site: left antecubital; aj 13:45 Follow up: Response: No adverse reaction mg2 12:01 Drug: Zofran 4 mg Route: IVP; Site: left antecubital; aj 13:44 Follow up: Response: No adverse reaction mg2 12:01 Drug: morphine 4 mg {Note: RASS score 0 patient is alert.} Route: IVP; Site: left aj1 antecubital; 13:44 Follow up: Response: No adverse reaction; Marked relief of symptoms mg2 Disposition: 06/28/19 14:07 Hospitalization ordered by Jonah Miller for Inpatient Admission. Preliminary diagnosis is Acute pancreatitis. - Bed requested for Telemetry/MedSurg (Inpatient). - Status is Inpatient Admission. mg2 - Condition is Stable. - Problem is new. - Symptoms have improved. Addendum: 06/30/2019 08:23 Co-signature as Attending Physician, Matti Combs MD I agree with the assessment and c preston plan of care. Signatures: Dispatcher [employer] EDOH Tammy Spencer RN RN aj1 Matti Combs MD MD cha Smirch, Shelby, RN RN ss Roszak, Josh, PA PA jr8 Robb Tanner RN RN ja1 Deondre Stubbs RN RN mg2 Corrections: (The following items were deleted from the chart) 06/28 15:00 14:07 Hospitalization Ordered by Jonah Miller MD for Inpatient Admission. ja1 Preliminary diagnosis is Acute pancreatitis. Bed requested for Telemetry/MedSurg (Inpatient). Status is Inpatient Admission. Condition is Stable. Problem is new. Symptoms have improved. jr8 16:23 15:00 06/28/2019 14:07 Hospitalization Ordered by Jonah Miller MD for Inpatient mg2 Admission. Preliminary diagnosis is Acute pancreatitis. Bed requested for Telemetry/MedSurg (Inpatient). Status is Inpatient Admission. Condition is Stable. Problem is new. Symptoms have improved. ja1
--- NOTE | 2019-06-28 14:08 | ER ---
Nurse's Notes [facility] Name: Mary Kay Rausch Age: 34 yrs Sex: Female : 1985 Arrival Date: 06/28/2019 Time: 11:22 Bed 14 Private MD: Diagnosis: Acute pancreatitis Presentation: 06/28 11:31 Presenting complaint: Patient states: epigastric pain, N/V that began today. Pt states ss that it feels similar to when she had to have her gallbladder removed. Transition of care: patient was not received from another setting of care. Onset of symptoms was June 28, 2019. Risk Assessment: Do you want to hurt yourself or someone else? Patient reports no desire to harm self or others. Initial Sepsis Screen: Does the patient meet any 2 criteria? No. Patient's initial sepsis screen is negative. Does the patient have a suspected source of infection? No. Patient's initial sepsis screen is negative. Care prior to arrival: None. 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 - Coronavirus screen:: The patient has NOT traveled to [place] in the past 14 days. Proceed with normal triage process as indicated. - Social history:: Smoking status: Patient denies any tobacco usage or history of. - Ebola Screening: : Patient denies exposure to infectious person Patient denies travel to an Ebola-affected area in the 21 days before illness onset. Screenin:02 Abuse screen: Denies threats or abuse. Denies injuries from another. Nutritional aj1 screening: No deficits noted. Tuberculosis screening: No symptoms or risk factors identified. 15:54 Fall Risk IV access (20 points). mg2 Assessment: 12:02 General: Appears in no apparent distress. uncomfortable, Behavior is calm, cooperative, aj1 appropriate for age. Pain: Complains of pain in epigastric area Pain radiates to back Quality of pain is described as stabbing. Neuro: Level of Consciousness is awake, alert, obeys commands, Oriented to person, place, time, situation. Cardiovascular: Patient's skin is warm and dry. Respiratory: Airway is patent Respiratory effort is even, unlabored, Respiratory pattern is regular, symmetrical. GI: Abdomen is flat, non-distended, Bowel sounds present X 4 quads. Abd is soft X 4 quads Abdomen is tender to palpation in epigastric area Reports upper abdominal pain, nausea, vomiting. : No signs and/or symptoms were reported regarding the genitourinary system. EENT: No signs and/or symptoms were reported regarding the EENT system. Derm: No signs and/or symptoms reported regarding the dermatologic system. Skin is pink, warm \T\ dry. normal. Musculoskeletal: No signs and/or symptoms reported regarding the musculoskeletal system. Circulation, motion, and sensation intact. 12:45 Reassessment: Patient transported to CT via wheelchair. aj1 Vital Signs: 11:30 BP 126 / 79; Pulse 70; Resp 16; Temp 98.2(O); Pulse Ox 99% on R/A; Weight 52 kg; Height ss 5 ft. 0 in. (152.40 cm); Pain 7/10; 13:30 BP 110 / 65; Pulse 70; Resp 18; Pulse Ox 100% ; mg2 14:30 BP 105 / 72; Pulse 75; Resp 18; Pulse Ox 100% on R/A; mg2 15:17 BP 104 / 78; Pulse 64; Resp 18; Temp 98; Pulse Ox 99% on R/A; mg2 11:30 Body Mass Index 22.39 (52.00 kg, 152.40 cm) ED Course: 11:22 Patient arrived in ED. mr 11:25 Meek Seymour PA is PHCP. jr8 11:25 Matti Combs MD is Attending Physician. jr8 11:30 Arm band placed on right wrist. ss 11:32 Triage completed. ss 11:37 Tammy Spencer, FEI is Primary Nurse. aj1 11:48 Initial lab(s) drawn, by me, sent to lab. Inserted saline lock: 20 gauge in left aj1 antecubital area, using aseptic technique. Blood collected. 12:02 Patient has correct armband on for positive identification. Bed in low position. Call aj1 light in reach. Side rails up X 1. 12:02 No provider procedures requiring assistance completed. aj1 12:35 Radiology exam delayed due to test not completed at this time. mw3 13:01 CT completed. Patient tolerated procedure well. Patient moved back from CT. bq 13:35 Ultrasound completed. Patient tolerated well. sg3 14:07 Jonah Miller MD is Hospitalizing Provider. jr8 15:52 Patient admitted, IV remains in place. mg2 Administered Medications: 12:01 Drug: Pepcid 20 mg Route: IVP; Site: left antecubital; aj1 13:45 Follow up: Response: No adverse reaction mg2 12:01 Drug: Zofran 4 mg Route: IVP; Site: left antecubital; aj1 13:44 Follow up: Response: No adverse reaction mg2 12:01 Drug: morphine 4 mg {Note: RASS score 0 patient is alert.} Route: IVP; Site: left aj1 antecubital; 13:44 Follow up: Response: No adverse reaction; Marked relief of symptoms mg2 Outcome: 14:07 Decision to Hospitalize by Provider. 8 15:53 Admitted to Tele accompanied by [facility], via wheelchair, room 413, with chart, Report mg2 called to FEI Robert 15:53 Condition: stable 15:53 Instructed on the need for admit, Demonstrated understanding of instructions. 16:23 Patient left the ED. mg2 Signatures: Tammy Spencer RN RN aj1 Adelfo Tracie MeyerShivanity bq Laura Abreu RN RN Meek Seymour PA PA 8 Shell Pradhan 3 Deondre Stubbs RN RN mg2 Christine Bennett 3
[2019-06-28] MEDS ORDERED: MORPHINE 4 MG/ML SYR IV PRN (15:02)
[2019-06-28] MEDS ORDERED: ONDANSETRON 4 MG/2 ML VIAL IV PRN ×2 (15:55→20:49)
[2019-06-28] MEDS ORDERED: ZOLPIDEM TARTRATE 5 MG TABLET PO PRN (15:55)
[2019-06-28] MEDS: MORPHINE 4 MG/ML SYR IV PRN (16:53)
[2019-06-28] MEDS: D5 0.45 NS 1,000 ML IV SCH (16:54)
[2019-06-28] MEDS: ENOXAPARIN 40 MG/0.4 ML SQ SCH (16:55)
[2019-06-28] MEDS ORDERED: KCL 20 MEQ/100 mL IVPB 20 MEQ/100 ML BAG IV SCH (17:00)
[2019-06-28 17:13] LABS: Urine Appearance CLEAR; Urine Bilirubin NEGATIVE (NEG); Urine Blood 3+ (NEG); Urine Color YELLOW; Urine Glucose NEGATIVE (NEG); Urine Protein NEGATIVE (NEG); Urine Specific Gravity >=1.030 (1.005-1.030)
[2019-06-28 17:54] LABS: Urine Microscopic Reflex ORDER UMIC
[2019-06-28 17:55] LABS: Urine Bacteria <20 /HPF (<20); Urine Culture Reflex Order NOT NEEDED; Urine RBC <5 /HPF (NONE SEEN)
--- NOTE | 2019-06-28 19:50 | HP ---
Date of Admission: 06/28/2019 Reason For Admission: Abdominal pain, nausea and vomiting. History Of Present Illness: This is a 34-year-old female with history of gallstones status post chol ecystectomy, who presented to emergency room with a history of abdominal pain started in the epigastr ic area. She describes the pain as stabbing, intermittent up to 10/10. In the emergency room, she w as evaluated. A CAT scan done showed mild pancreatitis changes involving the tail of the pancreas. There was no signs of cholecystitis. She has 4.6 cm left ovarian cyst without rupture or hemorrhage. She was prominent, but not outside of normal range. She also had an ultrasound of the abdomen whic h was negative and her labs was consistent with acute pancreatitis with lipase up to 27,520. Patient denies any history of alcoholism. She drinks socially. She denies any history of hypertriglyceride efrain. Currently, she is lying in bed. She looks comfortable. No chest pain. No abdominal pain. Review of Systems: Otherwise as below. Past Medical History: Significant for none. Past Surgical History: Significant for cholecystectomy. Allergies: NONE. Social History: She is . She is a housewife. She has 2 kids. She does smoke socially. She does drink socially and she does not drink hard liquor. She does not use any drugs. Family History: Father alive and healthy. Mother of complication of surgery. Physical Examination: Vital Signs: Currently, blood pressure is 126/79, respiratory rate 16, pulse 70, temperature 98, sat urating 99% on room air. General: Patient is alert, orient x3, does not look in any distress. HEENT: Atraumatic, normocephalic. PERRLA. Oral mucosa is moist. Neck: Supple. No JVD. No carotid bruit. Chest: Clear to auscultation with good air entry. Heart: Regular rate and rhythm. S1 and S2 normal. No gallop or murmur. Abdomen: Soft, minimal tenderness to epigastric area. No guarding. Positive bowel sounds. Extremities: No clubbing, cyanosis or edema. No calf tenderness. Neurologic: Grossly intact. Cranial exam 2 through 12 intact. Normal sensation. No asterixis. No rmal muscle strength. Laboratory Data: Today, showed CBC was normal except for white blood cells 15.1. Chemistry was norm al except for calcium 8.3, AST of 86, lipase of 27,520. CT ultrasound as above. Assessment/plan: 34-year-old female with history of gallstones with cholecystectomy, presented with severe abdominal pain associated with nausea, vomiting, and found to have acute pancreatitis. 1.Acute pancreatitis. We will admit her to the hospital, started on IV fluids with D5 half-normal. Keep her n.p.o. Symptomatic treatment for pain with morphine. I will check lipid panel to rule out triglyceridemia. The patient has no gallstones noted or biliary duct dilatation on CT, so if no hyp ertriglyceridemia than it is probably alcohol related. Patient denies drinking, except for socially though. 2.Alcohol use. Patient denies abuse and she only drinks socially. Advised her to stop totally. 3.Symptomatic treatment for nausea and vomiting with Zofran. 4.Symptomatic treatment for pain with morphine. KRISTIE/ADRIANA Voice ID: [id number]
[2019-06-28] MEDS ORDERED: ONDANSETRON 4 MG/2 ML VIAL IV ONE (20:49)
[2019-06-29] MEDS: D5 0.45 NS 1,000 ML IV SCH ×4 (00:10→21:55)
[2019-06-29] MEDS: MORPHINE 4 MG/ML SYR IV PRN (01:45)
[2019-06-29 05:16] LABS: Absolute Lymphocytes (CBC) 0.9 K/uL (0.7-4.9); Basophils % 0.1 % (0-1.3); Hematocrit 39.6 % (36.0-45.0); Lymphocytes % 8.7 % (15.3-44.8); MPV 9.5 fL (7.6-11.3); RBC Red Blood Cell Count 4.15 M/uL (3.86-4.86)
[2019-06-29] MEDS: ENOXAPARIN 40 MG/0.4 ML SQ SCH (07:55)
[2019-06-29 07:56] LABS: Albumin 3.2 g/dL (3.4-5.0); Alkaline Phosphatase 135 U/L (45-117); BUN Blood Urea Nitrogen 3 mg/dL (7-18); Bicarbonate 25 mmol/L (21-32); Glucose Level 123 mg/dL (74-106); HDL Cholesterol 60 mg/dL (40-60); LDL Cholesterol, Calculated 50 (<130); Lipase 15654 U/L (73-393); Potassium 3.7 mmol/L (3.5-5.1); Protein, Total 6.5 g/dL (6.4-8.2); Sodium Level 138 mmol/L (136-145)
[2019-06-29 08:30] LABS: ALT/SGPT 699 U/L (12-78); AST/SGOT 666 U/L (15-37)
[2019-06-29] MEDS ORDERED: KCL 20 MEQ/100 mL IVPB 20 MEQ/100 ML BAG IV SCH (13:00)
--- NOTE | 2019-06-29 15:07 | PN ---
Subjective: Currently, patient lying in bed. She looks comfortable. Her abdominal pain improved ov ernight. No nausea, no vomiting. She is still on IV fluid. Objective: Vital Signs: Blood pressure 109/65, respiratory rate 22, pulse 65, temperature is 98.2. General: Patient is alert and oriented x3. Does not look in any distress. HEENT: Atraumatic, normocephalic. PERRLA. Oral mucosa is moist. Neck: Supple. No JVD. No carotid bruit. Chest: Clear to auscultation. Good air entry. Heart: Regular rate and rhythm. S1, S2 normal. No gallop or murmur. Abdomen: Mildly tender in the epigastric area. There is no rebound, no guarding. Positive bowel so unds. Extremities: No clubbing, cyanosis, or edema. No calf tenderness. Neurologic: Grossly intact. Cranial nerve exam 2 through 12 intact. Normal sensation. Normal refl exes. Normal muscle strength. Laboratory Data: Labs today showed CBC within normal. Chemistry within normal. Glucose 123, calciu m 7.8, AST of 666, ALT of 699, alkaline phosphatase 135, albumin 3.2. Lipase is down from 27,500 to 15,654. White blood cells of course down from 15,000 to 10.6. Assessment And Plan: A 34-year-old female, history of gallstones, status post cholecystectomy, prese nted with severe abdominal pain, found to have acute pancreatitis. 1.Acute pancreatitis, improving overnight. We will keep patient n.p.o. for 1 more day. Keep her on IV fluids for now. Symptomatic treatment for pain as well as for nausea. Lipase down fr om 25,000 to 15,000, but LFTs started to trend up. If LFT continues to trend up further more in the morning, then we will consider a GI consult and we may have to do MRCP to rule out gallstones in the bile duct as patient had cholecystectomy previously. 2.Alcohol use according to patient socially. Advised strongly to quit alcohol. 3.Lipid panel check. There is no hypertriglyceridemia, so that should not be a reason for patient's pancreatitis. 4.Symptomatic treatment for pain and nausea as before. KRISTIE/ADRIANA Voice ID: [id number] Report ID: [id number]
[2019-06-29 15:35] VITALS: BMI 23.6
[2019-06-30] MEDS: D5 0.45 NS 1,000 ML IV SCH ×3 (04:18→21:40)
[2019-06-30 04:32] LABS: AST/SGOT 161 U/L (15-37); Albumin 3.2 g/dL (3.4-5.0); Alkaline Phosphatase 124 U/L (45-117); BUN Blood Urea Nitrogen 3 mg/dL (7-18); Bicarbonate 27 mmol/L (21-32); Bilirubin Direct 0.2 mg/dL (0-0.2); Bilirubin Total 0.5 mg/dL (0.2-1.0); Glucose Level 94 mg/dL (74-106); Lipase 733 U/L (73-393); Magnesium 2.2 mg/dL (1.8-2.4); Potassium 3.6 mmol/L (3.5-5.1); Protein, Total 6.1 g/dL (6.4-8.2); Sodium Level 140 mmol/L (136-145)
[2019-06-30 04:47] LABS: ALT/SGPT 438 U/L (12-78)
[2019-06-30] MEDS ORDERED: KCL 20 MEQ/100 mL IVPB 20 MEQ/100 ML BAG IV SCH (07:30)
[2019-06-30] MEDS: ENOXAPARIN 40 MG/0.4 ML SQ SCH (07:32)
--- NOTE | 2019-06-30 10:35 | P.PN ---
Subjective Date of Service: 06/30/19 Chief Complaint: Abdominal pain improving Subjective: No new changes, Improving, NPO Review of Systems 10-point ROS is otherwise unremarkable Gastrointestinal: Other (Pain is better, denies any nausea vomiting) Physical Examination - Vital Signs Temperature: 97.6 F Blood Pressure: 93/55 Pulse: 60 Respirations: 13 Pulse Ox (%): 98 - Physical Exam General: Alert, In no apparent distress, Oriented x3 HEENT: Atraumatic, Normocephalic Neck: Supple Respiratory: Clear to auscultation bilaterally, Normal air movement Cardiovascular: No edema, Regular rate/rhythm, Normal S1 S2 Capillary refill: <2 Seconds Gastrointestinal: Soft and benign, W/out hepatosplenomegaly Musculoskeletal: No clubbing, No swelling Integumentary: No rashes Neurological: Normal gait, Normal speech, Normal strength at 5/5 x4 extr Lymphatics: No axilla or inguinal lymphadenopathy Urinary: Other (No bladder distention) External genitalia: Deferred Rectal: Deferred - Studies LFTs to be done Lipase trending down as well No hypertriglyceridemia Assessment & Plan - Problems (Diagnosis) (1) Pancreatitis, acute Current Visit: Yes Status: Acute Plan: Lipase trending down On IV hydration Patient is still NPO Will start on clear liquid diet and monitor Pain control Qualifiers: Acute pancreatitis complication: unspecified (2) Elevated liver function tests Current Visit: Yes Status: Acute Plan: Will trend liver function panel Lipase trending down LFTs trending down AST decreased from 666-161 ALT decreased from 699-0 4:38 Bilirubin is within normal limits Pain is controlled well Feeling hungry will start on clear liquid diet Continue IV fluids Will do MRCP GI consult (3) History of cholecystectomy Current Visit: Yes Status: Chronic Discharge Plan: Home Plan to discharge in: 48 Hours Time Spent Managing Pts Care (In Minutes): 45
[2019-07-01] MEDS: D5 0.45 NS 1,000 ML IV SCH ×2 (03:55→16:33)
[2019-07-01 05:59] LABS: Absolute Lymphocytes (CBC) 1.5 K/uL (0.7-4.9); Basophils % 0.4 % (0-1.3); Hematocrit 37.4 % (36.0-45.0); Lymphocytes % 26.5 % (15.3-44.8); RBC Red Blood Cell Count 3.92 M/uL (3.86-4.86)
[2019-07-01 06:20] LABS: ALT/SGPT 278 U/L (12-78); AST/SGOT 53 U/L (15-37); Alkaline Phosphatase 111 U/L (45-117); BUN Blood Urea Nitrogen 3 mg/dL (7-18); Bicarbonate 27 mmol/L (21-32); Bilirubin Total 0.3 mg/dL (0.2-1.0); Glucose Level 97 mg/dL (74-106); Lipase 403 U/L (73-393); Potassium 3.7 mmol/L (3.5-5.1); Protein, Total 6.1 g/dL (6.4-8.2); Sodium Level 140 mmol/L (136-145)
[2019-07-01] MEDS ORDERED: KCL 20 MEQ/100 mL IVPB 20 MEQ/100 ML BAG IV SCH (07:30)
--- NOTE | 2019-07-01 08:47 | RAD REPORT ---
EXAM DESCRIPTION: MRI - Cholangiogram - 07/01/2019 7:20 am CLINICAL HISTORY: Elevated LFTs, Pancreatitis COMPARISON: Abdomen Exam Limited dated 06/28/2019; Abdomen Pelvis W Contrast dated 06/28/2019 FINDINGS: Three-dimensional MRCP was performed using maximum intensity projection reconstruction on the same work station. No intrahepatic biliary tree dilatation is seen. The common bile duct is normal caliber without evide nce of retained stone, stricture or mass. The pancreatic duct is not pathologically dilated. Cholecystectomy. Limited T2 sequences through the abdomen demonstrates no bulky adenopathy, significant free fluid or abscess. IMPRESSION: Negative MR cholangiogram status post cholecystectomy.
[2019-07-01] MEDS: ENOXAPARIN 40 MG/0.4 ML SQ SCH (09:18)
--- NOTE | 2019-07-01 09:25 | P.PN ---
Subjective Date of Service: 07/01/19 Chief Complaint: Abdominal pain improving Subjective: Improving Review of Systems 10-point ROS is otherwise unremarkable Physical Examination - Vital Signs Temperature: 97.7 F Blood Pressure: 108/55 Pulse: 71 Respirations: 16 Pulse Ox (%): 98 - Physical Exam General: Alert, In no apparent distress HEENT: Atraumatic, Normocephalic Neck: Supple Respiratory: Clear to auscultation bilaterally Cardiovascular: No edema, Regular rate/rhythm Capillary refill: <2 Seconds Gastrointestinal: Soft and benign, W/out hepatosplenomegaly Musculoskeletal: No swelling Integumentary: No rashes, No breakdown Neurological: Normal gait, Normal speech, Normal strength at 5/5 x4 extr Lymphatics: No axilla or inguinal lymphadenopathy Urinary: Other (No bladder distention) External genitalia: Deferred Rectal: Deferred Assessment & Plan - Problems (Diagnosis) (1) Pancreatitis, acute Current Visit: Yes Status: Acute Plan: Lipase trending down On IV hydration Patient is still NPO Will start on clear liquid diet and monitor Pain control Qualifiers: Acute pancreatitis complication: unspecified (2) Elevated liver function tests Current Visit: Yes Status: Acute Plan: Will trend liver function panel Lipase trending down LFTs trending down AST decreased from 666-161 ALT decreased from 699-0 4:38 Bilirubin is within normal limits Pain is controlled well Feeling hungry will start on clear liquid diet Continue IV fluids Will do MRCP GI consult (3) History of cholecystectomy Current Visit: Yes Status: Chronic Plan: Liver function panel was trending down pain controlled well Lipase levels decreased to 403 Advancing diet and see how she tolerates MRCP findings noted Possible discharge in a.m. if she tolerates p.o. Time Spent Managing Pts Care (In Minutes): 42
[2019-07-02 06:00] LABS: Absolute Lymphocytes (CBC) 1.7 K/uL (0.7-4.9); Basophils % 0.5 % (0-1.3); Hematocrit 38.5 % (36.0-45.0); Lymphocytes % 23.3 % (15.3-44.8); MPV 9.3 fL (7.6-11.3); RBC Red Blood Cell Count 4.04 M/uL (3.86-4.86)
[2019-07-02 06:43] LABS: ALT/SGPT 207 U/L (12-78); AST/SGOT 28 U/L (15-37); Albumin 3.1 g/dL (3.4-5.0); Alkaline Phosphatase 104 U/L (45-117); BUN Blood Urea Nitrogen 6 mg/dL (7-18); Bicarbonate 27 mmol/L (21-32); Bilirubin Total 0.2 mg/dL (0.2-1.0); Glucose Level 88 mg/dL (74-106); Lipase 557 U/L (73-393); Protein, Total 6.3 g/dL (6.4-8.2); Sodium Level 140 mmol/L (136-145)
[2019-07-02 08:39] VITALS: TEMP 97.4
[2019-07-02 08:40] VITALS: BP 98/61
--- NOTE | 2019-07-02 09:33 | P.DS ---
Admission Date: 06/28/19 Discharge Date: 07/02/19 Disposition: ROUTINE DISCHARGE Discharge Condition: GOOD Reason for Admission: Abdominal pain improving - Problems (1) Pancreatitis, acute Status: Acute Qualifiers: Acute pancreatitis complication: unspecified (2) Elevated liver function tests Status: Acute (3) History of cholecystectomy Status: Chronic Brief History of Present Illness: 34-year-old female with history of gallstones status post cholecystectomy, who presented to emergency room with a history of abdominal pain started in the epigastric area. She describes the pain as stabbing, intermittent up to 10/10. In the emergency room, she was evaluated. A CAT scan done showed mild pancreatitis changes involving the tail of the pancreas. There was no signs of cholecystitis. She has 4.6 cm left ovarian cyst without rupture or hemorrhage. She was prominent, but not outside of normal range. She also had an ultrasound of the abdomen which was negative and her labs was consistent with acute pancreatitis with lipase up to 27,520. Patient denies any history of alcoholism. She drinks socially. She denies any history of hypertriglyceridemia. Hospital Course: The patient was admitted and was started on IV hydration along with pain control. Ultrasound and CT did not show recent alteration of CBD, lipase was initially very high which was trended down. She also found to have elevated LFTs. Pain was controlled well. She underwent an MRCP which was within normal limits. LFTs are trending down as well. Patient wanted go home and is being discharged home today in a stable condition with advice to follow up with PCP in 1 week and also with GI in 1-2 weeks Vital Signs/Physical Exam: Temp Pulse Resp BP Pulse Ox 97.4 F 60 18 98/61 98 07/02/19 08:00 07/02/19 08:00 07/02/19 08:00 07/02/19 08:00 07/02/19 08:00 General: Alert, In no apparent distress, Oriented x3 HEENT: Atraumatic, Normocephalic Neck: Supple Respiratory: Clear to auscultation bilaterally Cardiovascular: No edema, Regular rate/rhythm Capillary refill: <2 Seconds Gastrointestinal: Soft and benign, No tenderness Musculoskeletal: No clubbing, No swelling Integumentary: No rashes Neurological: Normal speech, Normal strength at 5/5 x4 extr Laboratory Data at Discharge: WBC 7.5 K/uL (4.3-10.9) D 07/02/19 05:06 Hgb 12.5 g/dL (12.0-15.0) 07/02/19 05:06 Hct 38.5 % (36.0-45.0) 07/02/19 05:06 Plt Count 295 K/uL (152-406) 07/02/19 05:06 Sodium 140 mmol/L (136-145) 07/02/19 05:06 Potassium 4.0 mmol/L (3.5-5.1) 07/02/19 05:06 BUN 6 mg/dL (7-18) L 07/02/19 05:06 Creatinine 0.70 mg/dL (0.55-1.3) 07/02/19 05:06 Glucose 88 mg/dL (74-106) 07/02/19 05:06 Magnesium 2.2 mg/dL (1.8-2.4) 06/30/19 03:40 Total Bilirubin 0.2 mg/dL (0.2-1.0) 07/02/19 05:06 AST 28 U/L (15-37) 07/02/19 05:06 ALT 207 U/L (12-78) H 07/02/19 05:06 Alkaline Phosphatase 104 U/L (45-117) 07/02/19 05:06 Triglycerides 90 mg/dL (<150) 06/29/19 04:36 Cholesterol 128 mg/dL (<200) 06/29/19 04:36 HDL Cholesterol 60 mg/dL (40-60) 06/29/19 04:36 Cholesterol/HDL Ratio 2.13 06/29/19 04:36 Lipase 557 U/L (73-393) H 07/02/19 05:06 Home Medications: Ondansetron [Zofran] 4 mg PO Q6H PRN #10 tab 07/02/19 Pantoprazole [Protonix Tab] 40 mg PO DAILY #30 tab 07/02/19 New Medications: Ondansetron [Zofran] 4 mg PO Q6H PRN #10 tab PRN Reason: Nausea / Vomiting Pantoprazole [Protonix Tab] 40 mg PO DAILY #30 tab Diet: Low Fat Activity: Ad ally Followup: Ronny Huston MD [ACTIVE - CAN ADMIT] - 1 Week (GI doctor- call to schedule an appointment ) Time spent managing pt's care (in minutes): 38
[2019-07-02 09:47] VITALS: O2SAT 97
== END 2019-07-02 11:02 | disposition home or self-care (01) | DRG 440 ==
LOC: ER 11:19 → ERHOLD 14:11 → 4TH 15:59
PROVIDERS: ADMIT Internal Medicine; ATTEND Internal Medicine
DX: K85.90 Acute pancreatitis without necrosis or infection, unspecified (principal); N83.202 Unspecified ovarian cyst, left side; F10.10 Alcohol abuse, uncomplicated; R79.89 Other specified abnormal findings of blood chemistry; Z90.49 Acquired absence of other specified parts of digestive tract
CPT/HCPCS: 36415; 74177; 74181; 76705; 80048; 80053; 80061; 80076; 81003; 81015; 83690; 83735; 85025; 96374; 96375; 99285; J1650; J2405; J7799; Q9967